=== PATIENT | female | born 1995 | race African-American/Black ===

== ENCOUNTER 2022-08-21 15:19 | Emergency (ER) | payer BC, SELFPAY ==
[2022-08-21 15:29] VITALS: BP 106/65; PULSE 87; RESP 20; TEMP 36.1; O2SAT 99
[2022-08-21 15:52] LABS: Basophils Absolute Auto 0.1 K/mm3 (0.0-0.1); Basophils Percent Auto 0.5 % (0.2-1.2); Eosinophils Absolute Auto 0.1 K/mm3 (0-0.3); Eosinophils Percent Auto 1.1 % (0-4.4); Hematocrit 41.7 % (37.0-47.0); Hemoglobin 13.9 g/dL (12.0-15.0); Immature Granulocyte Absolute 0.07 K/mm3 (0.00-0.031); Immature Granulocyte Percent A 0.5 % (0-0.5); Lymphocytes Absolute Auto 2.09 K/mm3 (0.9-3.2); Lymphocytes Percent Auto 15.8 % (18.3-44.2); Mean Corpuscular HGB Conc 33.3 g/dl (32-36); Mean Corpuscular Volume 95.9 fl (80-100); Mean Platelet Volume 10.3 fl (7.4-10.4); Monocytes Absolute Auto 1.1 K/mm3 (0.1-0.6); Monocytes Percent Auto 8.4 % (2.6-8.5); Neutrophils Absolute Auto 9.7 K/mm3 (1.3-6.7); Neutrophils Percent Auto 73.7 % (45.5-73.1); Platelet Count Result 301 k/mm3 (150-375); Red Blood Count 4.35 M/mm3 (4.2-5.4); White Blood Count 13.2 K/mm3 (4.5-10.0)
--- NOTE | 2022-08-21 17:12 | PC.NURSE ---
Checked in with triage nurse, states her two children are getting restless and she needed to leave. Encouraged to stay to be seen by provider, states she will return with any further issues and follow-up with OB.
== END 2022-08-21 17:33 | disposition left against medical advice (07) ==
LOC: ANHED 17:30
PROVIDERS: Emergency Medicine
DX: O26.891 Other specified pregnancy related conditions, first trimester (principal); R10.30 Lower abdominal pain, unspecified; Z3A.10 10 weeks gestation of pregnancy
CPT/HCPCS: 36415; 84702; 85025; 85461; 86850; 86900; 86901; 99199

== ENCOUNTER 2024-09-08 09:36 | Emergency (ER) | payer BC, SELFPAY ==
[2024-09-08 09:47] VITALS: BP 129/79; PULSE 99; RESP 18; TEMP 36.8; O2SAT 99
--- OUTSIDE RECORDS SUMMARY | 2024-09-08 10:22 | XMS_ITS ---
Author Organization [facility] Address [address] [place] [address] Care Team Providers Care Drilling Field Professional Name Role Phone Jerome Reza Primary Care Provider REASON FOR VISIT Unable to reach client for appt Encounters Encounter Location Date Provider Diagnosis [address] [place] [address] 04/14/2024 Jerome Reza Plan Of Treatment No Information Progress Notes * Vanessa AMEZQUITADOB:1995 (28 yo F)Acc No.[id number]:04/14/2024 Patient: Vanessa WOO :1995 A ge:28 Y S ex:Female Address:[facility] [place] [address], [id number] * true * Date: Generated for Angela naidu/Susan/eTransmitting on: 0 09/08/2024 10:22 AM CDT
--- OUTSIDE RECORDS SUMMARY | 2024-09-08 10:23 | XMS_ITS ---
Author Organization [facility] Address [address] [place] [address] Care Team Providers Care Dry Room Attendant Name Role Phone Jerome Reza Primary Care Provider [phone] Ariella Gerardo [phone] REASON FOR VISIT 1 Month Psych F/U & Med Refill Medications Medication SIG (Take, Route, Frequency, Duration) Notes Start Date End Date Status Prazosin HCl 1 MG 1 capsule at bedtime Orally Once a day for 30 days Active Sertraline HCl 100 MG 1.5 tablets Orally Once a day for 30 days Active QUEtiapine Fumarate 50 MG 1-2 tablet at bedtime Orally Once a day for 30 days Active ARIPiprazole 2 MG 1 tablet Orally Once a day for 30 days Active Encounters Encounter Location Date Provider Diagnosis [address] [address] 04/14/2024 Ariella Gerardo Plan Of Treatment No Information Progress Notes * BIA VanessaDOB:1995 (28 yo F)Acc No.[id number]:04/14/2024 UNLOCKED PROGRESS NOTE Patient: Vanessa WOO Provider: Chon Gerardo DNP, INDUSTRIAL DESIGNER, PMHNP-BC :1995 A ge:28 Y S ex:Female Date:04/14/2024 Address:[address] [place], [place]-[address] Pcp:Jerome Reza Check 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 1 Month Psych F/U & Med Refill. * Medical History: * Medications: T aking Sertraline HCl 100 MG Tablet 1.5 tablets Orally Once a day , Taking Prazosin HCl 1 MG Capsule 1 capsule at bedtime Orally Once a day , Taking QUEtiapine Fumarate 50 MG Tablet 1-2 tablet at bedtime Orally Once a day , Taking ARIPiprazole 2 MG Tablet 1 tablet Orally Once a day Objective: * Vitals: Assessment: Plan: * Treatment: * Recommended Wellness and Pre vention Guidelines: * S tatus A jerald L ast Done N ext Due A ction Taken N ONCOMPLIANT D epression followup 1 1 06/14/2023 - N ONCOMPLIANT I nfluenza vaccine (high risk) - 1 06/14/2023 - * * Electronic signature of Ayanna Baig , [id number] on 09/08/2024 at 10:23 AM CDT Sign off status: Pending * Provider: Chon Gerardo DNP, INDUSTRIAL DESIGNER, PMHNP-BC Date: 06/14/2023 Generated for Printing/Faxing/eTransmitting on: 0 09/08/2024 10:23 AM CDT
--- OUTSIDE RECORDS SUMMARY | 2024-09-08 10:23 | XMS_ITS | Patient Health Record ---
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 F32.9) 03/01/2024 MDD (major depressive disorder) (ICD-10 - F32.9) 02/16/2024 MDD (major depressive disorder) (ICD-10 - F32.9) 02/02/2024 MDD (major depressive disorder) (ICD-10 - F32.9) 01/05/2024 MDD (major depressive disorder) (ICD-10 - F32.9) 12/31/2023 Well woman exam with routine gynecological exam (ICD-10 - Z01.419) 02/02/2024 PTSD (post-traumatic stress disorder) (ICD-10 - F43.10) 01/05/2024 PTSD (post-traumatic stress disorder) (ICD-10 - F43.10) 02/16/2024 PTSD (post-traumatic stress disorder) (ICD-10 - F43.10) 03/01/2024 PTSD (post-traumatic stress disorder) (ICD-10 - F43.10) 01/19/2024 PTSD (post-traumatic stress disorder) (ICD-10 - F43.10) 03/15/2024 PTSD (post-traumatic stress disorder) (ICD-10 - F43.10) 12/30/2023 Alcohol abuse (ICD-10 - F10.10) 01/19/2024 Alcohol use disorder (ICD-10 - F10.99) Education provided on the negative impact of alcohol on physical and mental health, and the recommendation to eliminate and/or decrease alcohol intake.Gave education on substance abuse services that [facility] offers. Client wants to try slowing and stopping on own right now. 12/30/2023 Screening for deficiency anemia (ICD-10 - Z13.0) 03/15/2024 Alcohol use disorder (ICD-10 - F10.99) Recommend outpatient or inpatient substance treatment - discussed with client and she states she will think about it. Education provided on the negative impact of alcohol on physical and mental health, and the recommendation to eliminate and/or decrease alcohol intake.Gave education on substance abuse services that [facility] offers. Client wants to try slowing and stopping on own right now - Client reports decreased use since last visit. 03/01/2024 Alcohol use disorder (ICD-10 - F10.99) Recommend outpatient or inpatient substance treatment - discussed with client and she states she will think about it. Education provided on the negative impact of alcohol on physical and mental health, and the recommendation to eliminate and/or decrease alcohol intake.Gave education on substance abuse services that [facility] offers. Client wants to try slowing and stopping on own right now - Client reports decreased use since last visit. 01/05/2024 Alcohol use disorder (ICD-10 - F10.99) Education provided on the negative impact of alcohol on physical and mental health, and the recommendation to eliminate and/or decrease alcohol intake.Gave education on substance abuse services that [facility] offers. Client wants to try slowing and stopping on own right now. 02/02/2024 Alcohol use disorder (ICD-10 - F10.99) Education provided on the negative impact of alcohol on physical and mental health, and the recommendation to eliminate and/or decrease alcohol intake.Gave education on substance abuse services that [facility] offers. Client wants to try slowing and stopping on own right now - Client reports decreased use since last visit. 02/16/2024 Alcohol use disorder (ICD-10 - F10.99) Education provided on the negative impact of alcohol on physical and mental health, and the recommendation to eliminate and/or decrease alcohol intake.Gave education on substance abuse services that [facility] offers. Client wants to try slowing and stopping on own right now - Client reports decreased use since last visit. 02/02/2024 Nicotine dependence, unspecified, uncomplicated (ICD-10 - F17.200) 01/05/2024 Nicotine dependence, unspecified, uncomplicated (ICD-10 - F17.200) 02/16/2024 Nicotine dependence, unspecified, uncomplicated (ICD-10 - F17.200) 03/01/2024 Nicotine dependence, unspecified, uncomplicated (ICD-10 - F17.200) 12/30/2023 Screening for metabolic disorder (ICD-10 - Z13.228) 01/19/2024 Nicotine dependence, unspecified, uncomplicated (ICD-10 - F17.200) 03/15/2024 Nicotine dependence, unspecified, uncomplicated (ICD-10 - F17.200) 12/30/2023 Lipid screening (ICD-10 - Z13.220) 03/15/2024 Housing insecurity (ICD-10 - Z59.819) 03/01/2024 Housing insecurity (ICD-10 - Z59.819) 12/30/2023 Screening for HIV (human immunodeficiency virus) (ICD-10 - Z11.4) 12/30/2023 Encounter for HCV screening test for low risk patient (ICD-10 - Z11.59) 12/30/2023 Obesity (BMI 30-39.9) (ICD-10 - E66.9) 12/30/2023 Nutritional counseling (ICD-10 - Z71.3) 12/30/2023 Nicotine dependence, unspecified, uncomplicated (ICD-10 - F17.200) 01/05/2024 Other Continue psychotherapy as scheduled. Recommend EMDR once mood has stabilized. May self-administer medications or be administered own oral medications per [facility] protocols. Provided informed consent with understanding of side effects, adverse effects, risks and benefits as well as alternative treatments as previously discussed and with the above recommended medications & other aspects of the treatment program. Agrees to return sooner if symptoms worsen or suicidal or homicidal ideations occur. 01/19/2024 Other May self-administer medications or be administered own oral medications per [facility] protocols. Provided informed consent with understanding of side effects, adverse effects, risks and benefits as well as alternative treatments as previously discussed and with the above recommended medications & other aspects of the treatment program. Agrees to return sooner if symptoms worsen or suicidal or homicidal ideations occur. 02/02/2024 Other May self-administer medications or be administered own oral medications per [facility] protocols. Provided informed consent with understanding of side effects, adverse effects, risks and benefits as well as alternative treatments as previously discussed and with the above recommended medications & other aspects of the treatment program. Agrees to return sooner if symptoms worsen or suicidal or homicidal ideations occur. 02/16/2024 Other May self-administer medications or be administered own oral medications per [facility] protocols. Provided informed consent with understanding of side effects, adverse effects, risks and benefits as well as alternative treatments as previously discussed and with the above recommended medications & other aspects of the treatment program. Agrees to return sooner if symptoms worsen or suicidal or homicidal ideations occur. 03/01/2024 Other May self-administer medications or be administered own oral medications per [facility] protocols. Provided informed consent with understanding of side effects, adverse effects, risks and benefits as well as alternative treatments as previously discussed and with the above recommended medications & other aspects of the treatment program. Agrees to return sooner if symptoms worsen or suicidal or homicidal ideations occur. 03/15/2024 Other Follow-up in two weeks to see if we need to make further medication adjustments May self-administer medications or be administered own oral medications per [facility] protocols. Provided informed consent with understanding of side effects, adverse effects, risks and benefits as well as alternative treatments as previously discussed and with the above recommended medications & other aspects of the treatment program. Agrees to return sooner if symptoms worsen or suicidal or homicidal ideations occur. 01/05/2024 Other Learning About the Safe Use of Antibiotics material was discussed. Pt was educated on use of antibiotic medication including dosing, side effects, adverse effects and anticipated response. Pt was also educated on importance of completing full course of treatment as ordered. Patient voiced understanding of all. Plan Of Treatment No Information Insurance Providers Payer Name Payer Address Payer Phone Subscriber Number Group Number Insured Name Patient Relationship to Insured Coverage Start Date Coverage End Date [facility] [address] [place] [phone] [id number] Vanessa Hilliard Self - patient is the insured [address] [phone] [id number] Vanessa Hilliard Self - patient is the insured 4 Medical (General) History Surgical History Surgery Date(Month/Year) Appendectomy 2017 Hospitalization History Reason Date(Month/Year) kidney failure
--- OUTSIDE RECORDS SUMMARY | 2024-09-08 10:23 | XMS_ITS | Clinical Summary ---
Author Organization [facility] Address [address] [place] [id number] Care Team Providers Care Line Inspector Name Role Phone None, Provider MD Primary Care Provider Unavaila ble Allergies No known active allergies Medications azithromycin 250 MG tablet Take 2 tablets by mouth on day one then 1 daily for four days. 6 tablet 07/04/2019 Active Social History Tobacco Use Types Packs/Day Years Used Date Smoking Tobacco: Never Smokeless Tobacco: Never Alcohol Use Standard Drinks/Week Comments Yes 0 (1 standard drink = 0.6 oz pur e alcohol) 2x/week Comments No Sex and Gender Information Value Date Recorded Sex Assigned at Not on file Legal Sex Female 5:37 PM CDT Gender Identity Not on file Sexual Orientation Not on file Last Filed Vital Signs Vital Sign Reading Time Taken Comments Blood Pressure 118/74 02/17/2020 10:43 PM CDT Pulse 83 02/17/2020 10:43 PM CDT Temperature 36.1 C (97 F) 02/17/2020 7:47 PM CDT Respiratory Rate 18 02/17/2020 10:43 PM CDT Oxygen Saturation 100% 02/17/2020 10:43 PM CDT Inhaled Oxygen Concentration - - Weight 88 kg (194 lb) 02/17/2020 7:47 PM CDT Height 170.2 cm (5' 7 ) 02/17/2020 7:47 PM CDT Body Mass Index 30.38 02/17/2020 7:47 PM CDT Plan of Treatment Health Maintenance Due Date Last Done Comments Cervical Cancer Screening Pa p Smear (Age 30 to 64) Every 3 Years 1993 Annual Physical 1996 Hepatitis C 12/05/2011 DTaP, Tdap and Td Vaccines ( 1 - Tdap) 2012 Hepatitis B Vaccines (1 of 3 - 19+ 3-dose series) 2012 Cervical Cancer Screening Pa p with HPV Testing (Age 30 to 64) Every 5 Years 12/05/2023 Cervical Cancer Screening with HPV 12/05/2023 COVID-19 Vaccine ( - 2023-2 5 season) 2024 Influenza Adult (#1) 2024 HPV Vaccines Aged Out No longer eligi ble based on patient's age to complete this topic Meningococcal B Vaccine Aged Out No l onger eligible based on patient's age to complete this topic Meningococcal Vaccine Aged Out No don [place] eligible based on patient's age to complete this topic Pneumococcal Vaccine: Pediat rics (0 to 5 Years) and At-Risk Patients (6 to 64 Years) Aged Out No longer eligible b ased on patient's age to complete this topic RSV Immunizations Under 20 Months Aged Out No longer eligible based on patient's age to complete this topic Care Teams Line Inspector Relationship Specialty Start Date End Date None, Provider, PCP - General 05/14/19
--- OUTSIDE RECORDS SUMMARY | 2024-09-08 10:23 | XMS_ITS | Data Portability ---
Author Organization [facility] HENRYArnoldo Address [address] [place] [address] Assessment No assessment recorded. Plan of Treatment Reminders Order Date Submit Date Provider Last Modified By Organization Details Last Modified Time Details Appointments None recorded. Lab PPD (purified protein derivative) , skin test 2021 [facility] In-Office Order, Internal Use Only DO Not Attach Compendium DO Not Attach Compendium, Do Not Delete/merge, [id number] 17:06:05 varicella zoster virus IgG Ab, QN, IA, serum 2021 [facility], [address] [place] [address], [address], [address], 15:10:03 Referral None recorded. Procedures None recorded. Surgeries None recorded. Imaging None recorded. Medication Orders Tubersol 5 tub. unit/0.1 mL intradermal injection solution 2021 [facility] [id number] In [facility], [address] [place] [address], [address], 17:17:23 Patient TargetsNo targets recorded. Patient Instructions Encounter Date Encounter Id Patient Instructions Last Modified By Organization Details Last Modified Time 09/03/2021 [id number] influenza (flu) vaccine: care instructions [facility] Not available 09/03/2021 11:01:47 Reason for Referral None Reported. Results Created Date Observation Date Name Description Value Unit Range Abnormal Flag Note LastModifiedBy Organization Detail LastModifiedTime 09/04/1909/0409/04/2021 VARIC ARACELIS- ZOSTE R V AB, IGG varicella zoster IgG 757 index immune >165 Negat shahzad <135 Equiv ocal 135 - 165 Posit shahzad >165 A posit shahzad resul t gener ally indic ates expos ure to the patho gen or admin istra tion of speci fic immun oglob ulins , but it is not indic ation of activ e infec tion or stage of disea se. Not Available [facility] ([facility]) [address] [facility], [place], [address], 09/04/2021 15:10:03 09/06/19 22 09/05/2021 PPD (nettie fied prote in deriv ative ), skin test Result Negati ve Not Available In-Office Order Internal Use Only DO Not Attach Compendium DO Not Attach Compendium, Do Not Delete/merge, [id number] 09/03/2021 11:00:59 Result Notes None recorded. Medical Equipment None Reported. Allergies No known drug allergies Medications Name Sig Start Date Stop Date Status Note LastModified by Organization Details LastModified Time Tubersol 5 tub. unit/0.1 mL intradermal injection solution Inject 0.1 mL by intradermal route. 2021 active Not Available Not Available Not Avai lable metronidazol e 500 mg tablet TAKE 1 TABLET BY MOUTH TWICE DAILY active Not Available Not Available No t Available acyclovir 400 mg tablet active Not Available Not Available Not Available azithromycin 500 mg tablet TAKE 2 TABLETS BY MOUTH FOR 1 DOSE active Not Available Not Available No t Available nitrofuranto in monohydrate/ macrocrystal s 100 mg capsule TAKE 1 CAPSULE BY MOUTH EVERY 12 HOURS active Not Available Not Available No t Available Vitamins Plus Low Iron 27 mg iron-1 mg tablet active Not Available Not Available Not Available My Choice 1.5 mg tablet USE DIRECTED active Not Available Not Available No t Available Vitals Date Recorded Body height Body mass index (BMI) Body weight Body temperature Heart rate Oxygen saturation Oxygen saturation in Arterial blood by Pulse oximetry Systolic blood pressure Diastolic blood pressure Provider Name and Address Organization Details Last Updated DateTime 2 170.18 cm 32.6 kg/m2 84835.2 1 g 98.1 [degF] 68 /min 99 % 99 % 108 mm[Hg] 76 mm[Hg] Karen Longo MA [facility] 2 10:33:10 Date Recorded Body height Provider Name an d Address Organization Details Last Updated DateTime 09/10/2021 170.18 cm Shanti Madsen [place] 2021 10:49:33 Social History Question Answer Notes LastModified by Organizat ion Details LastModified Time Tobacco Smoking Status Current Every Day Smoker Black and milds Karen Longo MA null, [place] 09/03/2021 10:31:48 What Was The Date Of Your Most Recent Tobacco Screening? 09/03/2021 Information not available 09/03/2021 How Much Tobacco Do You Smoke? 0.25 PPD Information not available 09/03/2021 Sex: Unknown Functional Status None recorded. Mental Status None recorded. Family History Relationship Description Onset Age of this Age Resolved Age Notes LastModified by Organization Details LastModified Time Father No current problems or disability [email or web address] Not available 09/03 10:31:33 Mother No current problems or disability [email or web address] Not available 09/03 10:31:33 Medical History No medical history recorded. Gynecological History Statement/Question Response Abnormal Pap N Date of LMP 06/10/2022 On BCP's at Conception? N STIs/STDs Y HPV Vaccine Y Current Control Method Age at First Child 17 Sexually Active? Y Menses Monthly N Date of Last Pap Smear Sexual Problems? N LMP Unknown Obstetrics History GPAL:G 5 P 1 1 3 2 Type Value Multiple Births 0 Full Term 1 Induced 0 Spontaneous 3 Premature 1 Living 2 Ectopics 0 Total 5 Immunizations Vaccine Type Date Status Note Provider Nam e and Address Organization Details Recorded Time Influenza, split virus, quadrivalent, preservative 2 completed Sandra Espinosa MD Attn: [facility] [place], [address], [facility] 09/03/2021 15:23:15 Tdap 2 completed SYLWIA Moreira, [facility] 09/12/2021 10:58:53 Past Encounters Encounter ID Performer Location Encounter Start Date Encounter Closed Date Diagnosis/Indication Diagnosis SNOMED-CT Code Diagnosis ICD10 Code Diagnosis Note [id number] MD Misha Yuan (Adult Med) [address] [place] [address] 0 09/03/2021 10:02:55 09/04/2021 10:09:36 History and physical examination, [facility] 16606111 Z02.0 Left-olivier d, ambulating , oriented times 4, ear drums are normal in appearance , . Lungs clear to auscultati ons. Heart regular, no murmur. Abdomen soft , no mass . No edema of legs/feet. ROM neck, shoulder, elbows, hands, lower back, hips , knees and feet are normal, steady tip-toe and heels gaits. Administra tion of influenza vaccine 00177495 Z23 She wants flu vaccinatio n, also TB two-steps skin test. Patient tolerated flu shot well in this office. [id number] SANDRITA Yip (Adult Med) [address] [place] [id number] 09/10/2021 10:18:53 09/11/2021 15:24:34 Immunization advised 640156339 Z71.9 [id number] SYLWIA Moreira (Adult Med) [address] [place] [phone] 09/12/2021 10:36:07 09/13/2021 12:32:57 Immunization due [id number] Z28.3 Health Concerns Section Related Observation LastModified by Organization Detai ls LastModified Time None Recorded Concern Status LastModified by Organization Details LastModified Time None Recorded Advance Directives Directive None Recorded Payers Encounter Date Sequence Insurance Name Policy Number Policy Geller Covered Member ID Geller Member ID Guarantor Name 09/03/2021 1 [place] [facility] (MEDICAID REPLACEMENT - HMO) [id number] Vanessalyubov Hilliard [id number] Vanessa Ridgely 09/10/2021 1 [place] [facility] [place]ACEMENT - [place]) [id number] Vanessa Hilliard [id number] Vanessa Babak 09/12/2021 1 [place] [facility] [facility] (MEDICAID REPLACEMENT - HMO) [id number] Vanessa Hilliard [id number] Vanessa Hilliard Notes Date Note Type Note Provider Name and Address Organization Details Recorded Time 09/03/2021 text/html Office visit, for school physical. NKDA. Sandra Espinosa MD Attn: [facility], [place], [address], [place] [facility] 09/03/2021 15:25:20 OBGyn Episode Ob Episode Information Episode Created Date Number of Fetuses Patient Bloodtype Patient rh Status Prepregnancy Weight lbs Domestic Partner Domestic Partner Phone Father Name Cnc Operator Status 07/25/19 23 1 CLOSED Fetus Data First Name Last Name Admitted to NICU Weight (g) Sex Living Outcome Pediatric Complications Fetus ID Race Codes Race Delivery Type , Spontane ous [id number] Eduardo Calculation Initial Eduardo Date Initial Exam Date Initial Exam Provider Initial Ultrasound Date Last Menstrual Period Date Ultra Sound Weeks Gestation 0 Eighteen To Twenty Week Eduardo Update Ultra Sound Date Fundal Height At Umbil Quickening Date Ultra Sound Latest Weeks Gestation Final Eduardo Confirmed By Final Eduardo Confirmed Date Final Eduardo Date Ultra Sound Latest Days Gestation 0 0 Menstrual History Last Menstrual Date Menses Monthly On Bcp Conception Prior Menses Frequency Hcg Plus Date Menarche Onset Age Delivery Information Delivery Date Delivery Type Labor Anesthesia Weeks Gestation Incision Type Labor Labor Length Hrs Delivered By Post Complications Tubal Sterilization Discharge Date Comments 0 6 Discharge Information Feeding Method Contraceptive Method Maternal HG B and HCT Levels Ob Episode Information Episode Created Date Number of Fetuses Patient Bloodtype Patient rh Status Prepregnancy Weight lbs Domestic Partner Domestic Partner Phone Father Name Cnc Operator Status 07/25/19 23 1 CLOSED Fetus Data First Name Last Name Admitted to NICU Weight (g) Sex Living Outcome Pediatric Complications Fetus ID Race Codes Race Delivery Type , Spontane ous [id number] Eduardo Calculation Initial Eduardo Date Initial Exam Date Initial Exam Provider Initial Ultrasound Date Last Menstrual Period Date Ultra Sound Weeks Gestation 0 Eighteen To Twenty Week Eduardo Update Ultra Sound Date Fundal Height At Umbil Quickening Date Ultra Sound Latest Weeks Gestation Final Eduardo Confirmed By Final Eduardo Confirmed Date Final Eduardo Date Ultra Sound Latest Days Gestation 0 0 Menstrual History Last Menstrual Date Menses Monthly On Bcp Conception Prior Menses Frequency Hcg Plus Date Menarche Onset Age Delivery Information Delivery Date Delivery Type Labor Anesthesia Weeks Gestation Incision Type Labor Labor Length Hrs Delivered By Post Complications Tubal Sterilization Discharge Date Comments 6 7 Discharge Information Feeding Method Contraceptive Method Maternal HG B and HCT Levels Ob Episode Information Episode Created Date Number of Fetuses Patient Bloodtype Patient rh Status Prepregnancy Weight lbs Domestic Partner Domestic Partner Phone Father Name Cnc Operator Status 07/25/19 23 1 CLOSED Fetus Data First Name Last Name Admitted to NICU Weight (g) Sex Living Outcome Pediatric Complications Fetus ID Race Codes Race Delivery Type 2608.15 4 M Prematur e 14445 Standard Vaginal Delivery Eduardo Calculation Initial Eduardo Date Initial Exam Date Initial Exam Provider Initial Ultrasound Date Last Menstrual Period Date Ultra Sound Weeks Gestation 0 Eighteen To Twenty Week Eduardo Update Ultra Sound Date Fundal Height At Umbil Quickening Date Ultra Sound Latest Weeks Gestation Final Eduardo Confirmed By Final Eduardo Confirmed Date Final Eduardo Date Ultra Sound Latest Days Gestation 0 0 Menstrual History Last Menstrual Date Menses Monthly On Bcp Conception Prior Menses Frequency Hcg Plus Date Menarche Onset Age Delivery Information Delivery Date Delivery Type Labor Anesthesia Weeks Gestation Incision Type Labor Labor Length Hrs Delivered By Post Complications Tubal Sterilization Discharge Date Comments 4 Regional-Ep idural 36 36 07/25/22 pt states baby boy born [place], [place], Discharge Information Feeding Method Contraceptive Method Maternal HG B and HCT Levels Ob Episode Information Episode Created Date Number of Fetuses Patient Bloodtype Patient rh Status Prepregnancy Weight lbs Domestic Partner Domestic Partner Phone Father Name Cnc Operator Status 07/25/19 23 1 CLOSED Fetus Data First Name Last Name Admitted to NICU Weight (g) Sex Living Outcome Pediatric Complications Fetus ID Race Codes Race Delivery Type 3628.73 6 M Full Term [id number] Standard Vaginal Delivery Eduardo Calculation Initial Eduardo Date Initial Exam Date Initial Exam Provider Initial Ultrasound Date Last Menstrual Period Date Ultra Sound Weeks Gestation 0 Eighteen To Twenty Week Eduardo Update Ultra Sound Date Fundal Height At Umbil Quickening Date Ultra Sound Latest Weeks Gestation Final Eduardo Confirmed By Final Eduardo Confirmed Date Final Eduardo Date Ultra Sound Latest Days Gestation 0 0 Menstrual History Last Menstrual Date Menses Monthly On Bcp Conception Prior Menses Frequency Hcg Plus Date Menarche Onset Age Delivery Information Delivery Date Delivery Type Labor Anesthesia Weeks Gestation Incision Type Labor Labor Length Hrs Delivered By Post Complications Tubal Sterilization Discharge Date Comments 8 Regional-Ep idural 40 8 07/25/19 2 3 baby boy born [place], [place], cb-rma Discharge Information Feeding Method Contraceptive Method Maternal HG B and HCT Levels Ob Episode Information Episode Created Date Number of Fetuses Patient Bloodtype Patient rh Status Prepregnancy Weight lbs Domestic Partner Domestic Partner Phone Father Name Cnc Operator Status 07/25/19 23 1 CLOSED Fetus Data First Name Last Name Admitted to NICU Weight (g) Sex Living Outcome Pediatric Complications Fetus ID Race Codes Race Delivery Type , Spontane ous [address] Eduardo Calculation Initial Eduardo Date Initial Exam Date Initial Exam Provider Initial Ultrasound Date Last Menstrual Period Date Ultra Sound Weeks Gestation 0 Eighteen To Twenty Week Eduardo Update Ultra Sound Date Fundal Height At Umbil Quickening Date Ultra Sound Latest Weeks Gestation Final Eduardo Confirmed By Final Eduardo Confirmed Date Final Eduardo Date Ultra Sound Latest Days Gestation 0 0 Menstrual History Last Menstrual Date Menses Monthly On Bcp Conception Prior Menses Frequency Hcg Plus Date Menarche Onset Age Delivery Information Delivery Date Delivery Type Labor Anesthesia Weeks Gestation Incision Type Labor Labor Length Hrs Delivered By Post Complications Tubal Sterilization Discharge Date Comments 3 20 Discharge Information Feeding Method Contraceptive Method Maternal HG B and HCT Levels
--- OUTSIDE RECORDS SUMMARY | 2024-09-08 10:23 | XMS_ITS ---
Author Organization [facility] Address [address] [place] [address] Care Team Providers Care Utilization Review Nurse Name Role Phone Jerome Reza Primary Care Provider [phone] Ariella Gerardo [phone] REASON FOR VISIT RTW letter Encounters Encounter Location Date Provider Diagnosis [address] [place] [address] 03/17/2024 Ariella Gerardo Plan Of Treatment No Information Progress Notes * Vanessa AMEZQUITADOB:1995 (28 yo F)Acc No.[id number]:03/17/2024 Patient: Vanessa WOO :1995 A ge:28 Y S ex:Female Address:[facility] [place] [address], [address] * true * Date: Generated for Angela naidu/Susan/eTransmitting on: 0 09/08/2024 10:22 AM CDT
--- NOTE | 2024-09-08 10:53 | ED.DENTAL ---
HPI - Dental/Oral General Chief complaint: Dental/Oral Stated complaint: toothache Time Seen by Provider: 09/08/24 09:42 Source: patient Mode of arrival: ambulatory Limitations: no limitations History of Present Illness HPI Narrative: Patient is a 28 y/o female who presents to the ED with c/o R upper dental pain. Patient reports she has had a fracture R upper molar for some time now. Has been seeing a dentist to have the tooth removed, but is waiting to see a new dentist with her new insurance. Since last night, she has been having increased pain. Denies difficulty breathing or swallowing, N/V, fevers, drainage from the tooth. Took Excedrin last night. Related Data Allergies Allergy/AdvReac Type Severity Reaction Status Date / Time No Known Allergies Allergy Verified 09/08/24 09:37 Review of Systems Review of Systems: All systems reviewed & are unremarkable except as noted in HPI. All systems reviewed & are unremarkable except as noted in HPI and below Exam Narrative: GENERAL: Well appearing, obese with BMI of 34.8, non-toxic, in no acute distress. HEAD: Normocephalic, atraumatic. ENT: MMs moist. No trismus or malocclusion. Broken tooth #1 w/o drainage or focal abscess/fluctuance, focal TTP around tooth/gumline. No tonsillar hypertrophy or exudate. Uvula midline and nonedematous. RESPIRATORY: Airway patent, respirations nonlabored. No stridor or distress. CARDIOVASCULAR: Regular rate and rhythm MUSCULOSKELETAL: Moves all extremities. No gross deformities. SKIN: Warm, dry, normal color. NEURO: A&O X3. Speech clear. Steady gait. No ataxic movements. PSYCHIATRIC: Appropriate mood and affect. Normal interaction. Course Vital Signs Vital signs: Vital Signs Temperature 98.2 F 09/08/24 09:47 Pulse Rate 99 09/08/24 09:47 Respiratory Rate 18 09/08/24 09:47 Blood Pressure 129/79 09/08/24 09:47 Pulse Oximetry 99 09/08/24 09:47 Temperature 98.2 F 09/08/24 09:47 Pulse Rate 99 09/08/24 09:47 Respiratory Rate 18 09/08/24 09:47 Blood Pressure 129/79 09/08/24 09:47 Pulse Oximetry 99 09/08/24 09:47 MDM - Dental/Oral MDM Narrative Medical decision making narrative: Patient's pain is consistent with dental caries. There are no focal signs of space-occupying abscess. The patient is controlling secretions well without signs of airway compromise. Patient is felt reasonable for outpatient follow-up with dental evaluation. Patient will be started on Augmentin. Will prescribe short course of pain medication for home use. Discussed return precautions. She is in agreement with plan. Discharged in stable condition. Medical Records Attestation: I reviewed the patient's medical records. Discharge Plan Discharge Clinical Impression: Toothache Fracture of tooth Qualifiers: Encounter type: sequela Fracture type: closed Qualified Code(s): S02.5XXS - Fracture of tooth (traumatic), sequela Patient Disposition: Home, Self-Care Condition: Stable Instructions: Antibiotic Form, Toothache (ED) Additional Instructions: Take antibiotics as prescribed. Continue Tylenol and ibuprofen as needed for pain. [place] as needed for more severe pain. Stay well hydrated. Follow-up with dentist for further evaluation. Return to the ED if you experience worsening or severe symptoms, difficulty breathing or swallowing, unable to keep down food or drink, persistent fevers, or any other symptoms of concern. Patient Language: Czech Prescriptions: New hydrocodone-acetaminophen 5-325 mg tablet 1 tablet PO Q6H PRN (Reason: pain) Qty: 6 0RF amoxicillin-pot clavulanate 875-125 mg tablet 1 tablet PO Q12H 7 Days Qty: 14 0RF Follow-up/Referrals: UNKNOWN,DOCTOR [Primary Care Provider] - Time of Disposition: 11:01
--- OUTSIDE RECORDS SUMMARY | 2024-09-08 11:04 | XMS_ITS | Clinical Summary ---
Author Organization [facility] Address [address] [place] [address] Care Team Providers Care Parish Worker Name Role Phone None, Provider MD Primary [...] age to complete this topic Care Teams Parish Worker Relationship Specialty Start Date End Date None, Provider, PCP - General 05/14/19
[2024-09-08] MEDS: AMOXICILLIN/CLAVULANATE K 875-125 MG TAB 1 TABLET PO (11:06)
[2024-09-08] MEDS: KETOROLAC (*BKC) 60 MG/2 ML VIAL IM (11:06)
== END 2024-09-08 12:54 | disposition home or self-care (01) ==
PROVIDERS: Emergency Provider Physician Assistant
DX: K08.89 Other specified disorders of teeth and supporting structures (principal); S02.5XXA Fracture of tooth (traumatic), initial encounter for closed fracture; X58.XXXA Exposure to other specified factors, initial encounter
CPT/HCPCS: 96372; 99283; A9270; J1885